=== PATIENT | male | born 1985 | race Caucasian/White ===

== ENCOUNTER 2017-04-25 12:25 | Inpatient (IN) | payer SELFPAY ==
[2017-04-25 13:04] LABS: ADD MAN DIFF? YES; BASO % 0 % (0-3); EOS % 0 % (0-3); HEMATOCRIT 46.3 % (39.0-53.0); HEMOGLOBIN 14.9 g/dL (13.0-17.5); LYMPH # 1.4 x10^3/uL (1.0-4.8); LYMPH % 8 % (24-48); MEAN CORPUSCULAR HEMOGLOBIN 32 pg (25-35); MEAN CORPUSCULAR HGB CONC 32 g/dL (31-37); MEAN CORPUSCULAR VOLUME 98 fL (79-100); MONO # 1.5 x10^3/uL (0.0-1.1); MONO % 9 % (0-9); NEUT # 14.4 x10^3uL (1.8-7.7); NEUT % 83 % (31-73); PLATELET COUNT 363 x10^3/uL (140-400); RED BLOOD COUNT 4.72 x10^6/uL (4.30-5.70); RED CELL DISTRIBUTION WIDTH 13.9 % (11.5-14.5); WHITE BLOOD COUNT 17.4 x10^3/uL (4.0-11.0)
[2017-04-25] MEDS: IV NORMAL SALINE 1000ML BAG 1,000 ML IV ×4 (13:05→15:51)
[2017-04-25] MEDS: SODIUM BICARB ADULT 8.4% 50 MEQ/50 ML DISP.SYRIN. IV (13:06)
[2017-04-25 13:16] LABS: MAGNESIUM 2.8 mg/dL (1.8-2.4)
[2017-04-25 13:16] LABS: ANION GAP 17 (6-14); BLOOD UREA NITROGEN 20 mg/dL (8-26); CALCIUM 8.8 mg/dL (8.5-10.1); CARBON DIOXIDE 21 mmol/L (21-32); CHLORIDE 105 mmol/L (98-107); CREATININE 2.3 mg/dL (0.7-1.3); GFR 33.8; GLUCOSE 179 mg/dL (70-99); POTASSIUM 5.3 mmol/L (3.5-5.1); SODIUM 143 mmol/L (136-145)
[2017-04-25 13:20] LABS: ACETAMIN < 2 mcg/ml (10-30); ETHANOL < 10 mg/dL (0-10); SALIC 3.2 mg/dL (2.8-20.0)
[2017-04-25 13:22] LABS: ALK PHOS 73 U/L (46-116); ALT (SGPT) 79 U/L (16-63); AST (SGOT) 54 U/L (15-37); DIRECT BILIRUBIN 0.1 mg/dL (0.0-0.2); LIPASE 92 U/L (73-393); TOTAL BILIRUBIN 0.2 mg/dL (0.2-1.0); TOTAL PROTEIN 7.7 g/dL (6.4-8.2)
[2017-04-25 13:31] LABS: % BANDS 16 % (0-9); % LYMPHS 10 % (24-48); % MONOS 9 % (0-10); % MYELOS 1 % (0-0); % SEGS 64 % (35-66); PLT ESTIMATE ADEQUATE (ADEQUATE)
[2017-04-25] MEDS ORDERED: MORPHINE SULFATE 4 MG/ML DISP.SYRIN. IV (13:45)
[2017-04-25 15:34] LABS: CREATINE KINASE 178 U/L (39-308)
[2017-04-25] MEDS: IV 1/2 NORMAL SALINE 1,000 ML IV (15:47)
[2017-04-25] MEDS: ONDANSETRON PF 4 MG/2 ML VIAL. IV ×2 (15:56→20:43)
[2017-04-25] MEDS ORDERED: NICOTINE POLACRILEX 2MG GUM PACKAGE of 12. BC (16:45)
[2017-04-25] MEDS: ALPRAZolam 0.5 MG TABLET PO ×2 (17:14→20:44)
[2017-04-25] MEDS: NICOTINE 21MG PATCH. TD (17:14)
[2017-04-25 18:58] LABS: THYROID STIM HORMONE (TSH) 1.073 uIU/mL (0.358-3.74)
[2017-04-25 18:58] LABS: LACTIC ACID 3.7 mmol/L (0.4-2.0)
[2017-04-25] MEDS ORDERED: PIP/TAZO PER PHARMACY MC (19:30)
[2017-04-25] MEDS: PIPERACILLIN/TAZOBACTAM 3.375 GM in IV NORMAL SALINE 50ML 50 ML IV (20:44)
[2017-04-25] MEDS: ENOXAPARIN 40 MG/0.4 ML SYRINGE. SQ (21:00)
[2017-04-25] MEDS: VANCOMYCIN 2 GM in IV DEXTROSE 5 %-0.2 % NACL 500 ML IV (22:01)
[2017-04-26] MEDS: PIPERACILLIN/TAZOBACTAM 3.375 GM in IV NORMAL SALINE 50ML 50 ML IV ×5 (00:29→23:17)
[2017-04-26] MEDS: VANCOMYCIN PER PHARMACY MC ×3 (00:39→08:22)
[2017-04-26] MEDS: IV NORMAL SALINE 1000ML BAG 1,000 ML IV ×3 (01:00→12:31)
[2017-04-26] MEDS: IV 1/2 NORMAL SALINE 1,000 ML IV ×2 (04:41→21:51)
[2017-04-26 04:47] LABS: BILIRUBIN,URINE NEGATIVE (NEG); CLARITY,URINE CLEAR; COLOR,URINE YELLOW; GLUCOSE,URINE 500 mg/dL (NEG); NITRITE,URINE NEGATIVE (NEG); PH,URINE 5.5; PROTEIN,URINE 30 mg/dL (NEG-TRACE); UROBILINOGEN,URINE 0.2 mg/dL (0.2 mg/dL)
[2017-04-26 04:48] LABS: BACTERIA,URINE 0 /HPF (0-FEW); HYALINE CASTS, URINE MODERATE /HPF; RBC,URINE OCC /HPF (0-2); WBC,URINE OCC /HPF (0-4)
[2017-04-26] MEDS: ALPRAZolam 0.5 MG TABLET PO ×3 (04:53→23:17)
[2017-04-26 04:55] LABS: AMPHETAMINE/METHAMPHETAMINE NEG (NEG); BARBITURATES NEG (NEG); BENZODIAZEPINES NEG (NEG); CANNABINOIDS NEG (NEG); COCAINE NEG (NEG); ETHANOL, URINE NEG (NEG); METHADONE NEG (NEG); OPIATES POS (NEG); PHENCYCLIDINE NEG (NEG)
[2017-04-26 07:30] LABS: ADD MAN DIFF? NO
[2017-04-26 07:32] LABS: BASO % 0 % (0-3); EOS # 0.1 x10^3/uL (0.0-0.7); EOS % 0 % (0-3); HEMATOCRIT 39.5 % (39.0-53.0); HEMOGLOBIN 13.2 g/dL (13.0-17.5); LYMPH % 24 % (24-48); MEAN CORPUSCULAR HEMOGLOBIN 32 pg (25-35); MEAN CORPUSCULAR HGB CONC 33 g/dL (31-37); MEAN CORPUSCULAR VOLUME 95 fL (79-100); MONO # 1.1 x10^3/uL (0.0-1.1); MONO % 9 % (0-9); NEUT # 8.3 x10^3uL (1.8-7.7); NEUT % 67 % (31-73); PLATELET COUNT 240 x10^3/uL (140-400); RED BLOOD COUNT 4.16 x10^6/uL (4.30-5.70); RED CELL DISTRIBUTION WIDTH 13.8 % (11.5-14.5); WHITE BLOOD COUNT 12.4 x10^3/uL (4.0-11.0)
[2017-04-26 07:48] LABS: ALBUMIN 3.8 g/dL (3.4-5.0); ALBUMIN/GLOBULIN RATIO 1.3 (1.0-1.7); ALK PHOS 49 U/L (46-116); ALT (SGPT) 618 U/L (16-63); ANION GAP 10 (6-14); AST (SGOT) 408 U/L (15-37); BLOOD UREA NITROGEN 16 mg/dL (8-26); BUN/CREATININE RATIO 15 (6-20); CALCIUM 8.7 mg/dL (8.5-10.1); CARBON DIOXIDE 25 mmol/L (21-32); CHLORIDE 103 mmol/L (98-107); CREATININE 1.1 mg/dL (0.7-1.3); GFR 79.1; GLUCOSE 106 mg/dL (70-99); SODIUM 138 mmol/L (136-145); TOTAL BILIRUBIN 0.5 mg/dL (0.2-1.0); TOTAL PROTEIN 6.8 g/dL (6.4-8.2)
[2017-04-26 09:50] LABS: CKMB MASS 12.5 ng/mL (0.0-3.6)
[2017-04-26 10:01] LABS: CKMB INDEX 1.2 % (0-4); CREATINE KINASE 1064 U/L (39-308)
[2017-04-26] MEDS: LACTOBACILLUS RHAMNOSUS GG 1 CAPSULE. PO ×2 (12:12→21:00)
[2017-04-26] MEDS ORDERED: hydrALAZINE 20 MG/ML VIAL. IVP (12:15)
[2017-04-26] MEDS ORDERED: ACETAMINOPHEN 325 MG TABLET. PO (12:15)
[2017-04-26] MEDS ORDERED: MORPHINE SULFATE 4 MG/ML DISP.SYRIN. IV (12:15)
[2017-04-26] MEDS ORDERED: ONDANSETRON PF 4 MG/2 ML VIAL. IV (12:15)
[2017-04-26] MEDS ORDERED: DOCUSATE SODIUM 100 MG CAPSULE. PO (12:15)
[2017-04-26] MEDS ORDERED: traMADol 50 MG TABLET PO (12:15)
[2017-04-26] MEDS: VANCOMYCIN 1.25 GM in IV DEXTROSE 5 %-0.2 % NACL 250 ML IV ×2 (12:29→21:51)
[2017-04-26 12:32] LABS: MYOGLOBIN 259 ng/mL (16-96); TROPONINI 0.657 ng/mL (0.000-0.055)
[2017-04-26] MEDS: GADOBUTROL 7.5 MMOL/7.5 ML VIAL IV (14:10)
[2017-04-26 16:28] LABS: LACTIC ACID 1.1 mmol/L (0.4-2.0)
[2017-04-26] MEDS: ASPIRIN CHEWABLE 81 MG TABLET. PO (17:57)
[2017-04-26 18:48] LABS: BARBITURATES NEG (NEG); BENZODIAZEPINES NEG (NEG); CANNABINOIDS NEG (NEG); COCAINE NEG (NEG); METHADONE NEG (NEG); OPIATES POS (NEG); PHENCYCLIDINE NEG (NEG)
[2017-04-26 18:53] LABS: AMPHETAMINE/METHAMPHETAMINE NEG (NEG); ETHANOL, URINE NEG (NEG)
[2017-04-26 19:16] LABS: BILIRUBIN,URINE NEGATIVE (NEG); CLARITY,URINE CLEAR; GLUCOSE,URINE NEGATIVE (NEG); NITRITE,URINE NEGATIVE (NEG); PH,URINE 5.5; PROTEIN,URINE NEGATIVE (NEG-TRACE); UROBILINOGEN,URINE 0.2 mg/dL (0.2 mg/dL)
[2017-04-26 19:21] LABS: BACTERIA,URINE 0 /HPF (0-FEW); RBC,URINE 0 /HPF (0-2); WBC,URINE 0 /HPF (0-4)
[2017-04-26 19:22] LABS: COLOR,URINE STRAW; SQUAMOUS EPITHELIAL CELL,UR OCC /LPF
[2017-04-26] MEDS: ENOXAPARIN 40 MG/0.4 ML SYRINGE. SQ (21:00)
[2017-04-26] MEDS: NICOTINE 21MG PATCH. TD (21:01)
[2017-04-26] MEDS ORDERED: VANCOMYCIN 1.25 GM in IV DEXTROSE 5 %-0.2 % NACL 250 ML IV (22:00)
[2017-04-26 23:10] LABS: MRSA BY PCR Negative (Negative)
[2017-04-27] MEDS: IV 1/2 NORMAL SALINE 1,000 ML IV ×3 (01:29→17:29)
[2017-04-27 04:14] LABS: ADD MAN DIFF? NO
[2017-04-27 04:27] LABS: BASO % 0 % (0-3); EOS # 0.1 x10^3/uL (0.0-0.7); EOS % 1 % (0-3); HEMATOCRIT 36.6 % (39.0-53.0); HEMOGLOBIN 12.2 g/dL (13.0-17.5); LYMPH # 2.8 x10^3/uL (1.0-4.8); LYMPH % 33 % (24-48); MEAN CORPUSCULAR HEMOGLOBIN 32 pg (25-35); MEAN CORPUSCULAR HGB CONC 33 g/dL (31-37); MEAN CORPUSCULAR VOLUME 96 fL (79-100); MONO # 0.9 x10^3/uL (0.0-1.1); MONO % 11 % (0-9); NEUT # 4.7 x10^3uL (1.8-7.7); NEUT % 55 % (31-73); PLATELET COUNT 212 x10^3/uL (140-400); RED BLOOD COUNT 3.82 x10^6/uL (4.30-5.70); RED CELL DISTRIBUTION WIDTH 13.4 % (11.5-14.5); WHITE BLOOD COUNT 8.5 x10^3/uL (4.0-11.0)
[2017-04-27 05:01] LABS: ALBUMIN 3.1 g/dL (3.4-5.0); ALK PHOS 41 U/L (46-116); ALT (SGPT) 454 U/L (16-63); ANION GAP 5 (6-14); AST (SGOT) 162 U/L (15-37); BLOOD UREA NITROGEN 9 mg/dL (8-26); CALCIUM 8.2 mg/dL (8.5-10.1); CARBON DIOXIDE 29 mmol/L (21-32); CHLORIDE 108 mmol/L (98-107); CREATININE 0.9 mg/dL (0.7-1.3); DIRECT BILIRUBIN 0.2 mg/dL (0.0-0.2); GFR 99.8; GLUCOSE 110 mg/dL (70-99); POTASSIUM 3.4 mmol/L (3.5-5.1); SODIUM 142 mmol/L (136-145); TOTAL BILIRUBIN 0.4 mg/dL (0.2-1.0); TOTAL PROTEIN 5.7 g/dL (6.4-8.2)
[2017-04-27 05:21] LABS: CKMB INDEX 0.3 % (0-4); CKMB MASS 2.4 ng/mL (0.0-3.6); CREATINE KINASE 709 U/L (39-308)
[2017-04-27] MEDS: ALPRAZolam 0.5 MG TABLET PO (07:37)
[2017-04-27] MEDS: LACTOBACILLUS RHAMNOSUS GG 1 CAPSULE. PO (08:50)
[2017-04-27] MEDS: ASPIRIN CHEWABLE 81 MG TABLET. PO (08:50)
[2017-04-27 08:53] LABS: VITAMIN-B12 545 pg/mL (247-911)
[2017-04-27] MEDS: VANCOMYCIN 1.25 GM in IV DEXTROSE 5 %-0.2 % NACL 250 ML IV (10:00)
[2017-04-27 10:05] LABS: VANC TR 5.9 mcg/mL (10.0-20.0)
[2017-04-27] MEDS: VANCOMYCIN 1.75 GM in IV DEXTROSE 5 %-0.2 % NACL 500 ML IV (10:20)
[2017-04-27 12:29] LABS: CREATINE KINASE 682 U/L (39-308)
[2017-04-27] MEDS ORDERED: ALPRAZolam 0.5 MG TABLET PO (13:00)
[2017-04-27 13:39] LABS: TROPONINI 0.291 ng/mL (0.000-0.055)
[2017-04-27] MEDS: POTASSIUM CHLORIDE 20 MEQ TABLET.ER. PO (13:52)
[2017-04-27 16:14] LABS: HCV ANTIBODY <0.1 s/co ratio (0.0-0.9); HEP A IGM ABDY Negative (Negative); HEP B SURFACE AG Negative (Negative)
[2017-04-27] MEDS ORDERED: PIPERACILLIN/TAZOBACTAM 3.375 GM in IV NORMAL SALINE 100ML 100 ML IV (18:00)
== END 2017-04-27 19:00 | disposition home or self-care (01) | DRG 917 ==
LOC: 6 SOUTH 04-26 16:30 → ER 12:25 → 1 WEST ICU 13:47
DX: T40.1X1A Poisoning by heroin, accidental (unintentional), initial encounter (principal); G92 Toxic encephalopathy; N17.0 Acute kidney failure with tubular necrosis; J96.00 Acute respiratory failure, unspecified whether with hypoxia or hypercapnia; G93.1 Anoxic brain damage, not elsewhere classified; R78.81 Bacteremia; I95.9 Hypotension, unspecified; E87.2 Acidosis; M62.82 Rhabdomyolysis; E86.0 Dehydration; E87.5 Hyperkalemia; F17.210 Nicotine dependence, cigarettes, uncomplicated; F32.9 Major depressive disorder, single episode, unspecified; F41.9 Anxiety disorder, unspecified; I10 Essential (primary) hypertension; K58.9 Irritable bowel syndrome, unspecified; K76.0 Fatty (change of) liver, not elsewhere classified; N32.89 Other specified disorders of bladder; F11.10 Opioid abuse, uncomplicated; F14.10 Cocaine abuse, uncomplicated; R74.0 Nonspecific elevation of levels of transaminase and lactic acid dehydrogenase [LDH]; D72.829 Elevated white blood cell count, unspecified; E86.1 Hypovolemia
CPT/HCPCS: 36415; 70553; 71552; 76705; 76770; 80048; 80053; 80074; 80076; 80202; 80307; 80329; 81001; 82550; 82553; 82607; 83605; 83690; 83735; 83874; 84443; 84484; 85007; 85025; 87040; 87641; 93005; 93306; 96360; 96361; 96374; 99285; 99285-25; A9585; G0480; J2060; J2405; J2543; J3370; J7030